=== PATIENT | male | born 1990 | race Hispanic/Latino ===

== ENCOUNTER 2017-09-15 17:02 | Emergency (ER) | payer MEDICAID, OTHER | END 2017-09-15 17:38 | disposition home or self-care (01) | LOC: EDH 17:02 | DX: S90.31XA Contusion of right foot, initial encounter (principal); W22.8XXA Striking against or struck by other objects, initial encounter; Y93.89 Activity, other specified; Y92.69 Other specified industrial and construction area as the place of occurrence of the external cause; Y99.8 Other external cause status | CPT/HCPCS: 73630 ==

== ENCOUNTER 2023-08-13 11:38 | Emergency (ER) | payer OTHER ==
[~2023-08-13] VITALS: Ht 170.2 cm; Wt 97.5 kg
[2023-08-13 11:39] VITALS: BP 149/85
[2023-08-13 12:00] LABS: RAPID GROUP A STREP negative (NEGATIVE)
[2023-08-13 12:05] LABS: SARS-CoV-2, RNA, NAAT NEGATIVE SARS CoV-2 (NEGATIVE)
[2023-08-13 12:12] LABS: INFLUENZA TYPE A Negative For Type A (NEGATIVE)
[2023-08-13 12:27] LABS: INFLUENZA TYPE B Positive For Type B (NEGATIVE)
[2023-08-13] MEDS ORDERED: OSEL75 PO (13:01)
[2023-08-13] MEDS ORDERED: POLY17PO4 PO (13:01)
[2023-08-13] MEDS ORDERED: ALBU90AE2 IH (13:01)
[2023-08-13] MEDS ORDERED: BROM118S48 PO (13:01)
[2023-08-13] MEDS ORDERED: BENZ200C53 PO (13:01)
[2023-08-13 13:12] VITALS: PULSE 78; RESP 18; O2SAT 99
== END 2023-08-13 13:13 | disposition home or self-care (01) ==
LOC: EDH 11:38
DX: J10.1 Influenza due to other identified influenza virus with other respiratory manifestations (principal); B34.9 Viral infection, unspecified; K59.00 Constipation, unspecified
CPT/HCPCS: 87635; 87804; 87880

== ENCOUNTER 2024-02-28 05:52 | Emergency (ER) | payer OTHER ==
[~2024-02-28] VITALS: Ht 170.2 cm; Wt 88.9 kg
[~2024-02-28 05:52] MED LIST: ALBU90AE3 IH; BENZ200C53 PO; BROM118S48 PO; OSEL75 PO; POLY17PO4 PO
[2024-02-28] MEDS: LACTATED RINGERS 1000ML 1,000 ML IV ONE (07:10)
[2024-02-28 07:14] LABS: BASOPHILS # (AUTO) 0.07 K/uL (0.00-0.20); BASOPHILS % (AUTO) 0.8 % (0.0-5.0); EOSINOPHILS # (AUTO) 0.34 K/uL (0.00-0.70); EOSINOPHILS % (AUTO) 3.9 % (0.0-8.0); HEMATOCRIT 45.5 % (42-54); IMMATURE GRANULOCYTE ABSOLUTE 0.02 K/uL (0-1); LYMPHOCYTES # (AUTO) 3.7 K/uL (1.0-4.8); MEAN CORPUSCULAR HEMOGLOBIN 28.9 pg (27.0-33.0); MEAN CORPUSCULAR HGB CONC 34.3 g/dL (32.0-36.0); MEAN CORPUSCULAR VOLUME 84.3 fL (79-99); MONOCYTES # (AUTO) 0.8 K/uL (0.1-1.0); NEUTROPHILS # (AUTO) 3.9 K/uL (1.8-7.7); NEUTROPHILS % (AUTO) 44.1 % (40.0-77.0); PLATELET COUNT (AUTO) 397 K/uL (130-400); RED CELL DISTRIBUTION WIDTH 13.3 % (11.0-15.5); WHITE BLOOD COUNT (AUTO) 8.8 K/uL (4.8-10.8)
[2024-02-28 07:27] LABS: CREATININE 0.8 mg/dL (0.5-1.3); POTASSIUM 3.9 mmol/L (3.5-5.1)
[2024-02-28 08:01] LABS: AMPHET/METH SCREEN,URINE NEGATIVE (NEGATIVE); BARBITURATE SCREEN, URINE NEGATIVE (NEGATIVE); BENZODIAZEPINES SCREEN,URINE POSITIVE (NEGATIVE); CANNABINOID SCREEN,URINE POSITIVE (NEGATIVE); COCAINE SCREEN,URINE NEGATIVE (NEGATIVE); OPIATE SCREEN,URINE NEGATIVE (NEGATIVE); PHENCYCLIDINE SCREEN,URINE NEGATIVE (NEGATIVE)
[2024-02-28 08:10] LABS: SARS-CoV-2, RNA, NAAT NEGATIVE SARS CoV-2 (NEGATIVE)
[2024-02-28 08:11] LABS: INFLUENZA TYPE A Negative For Type A (NEGATIVE); INFLUENZA TYPE B Negative For Type B (NEGATIVE)
[2024-02-28] MEDS ORDERED: ONDA22I IM (08:42)
[2024-02-28] MEDS ORDERED: PRED20TA3 PO (08:50)
[2024-02-28] MEDS ORDERED: AZIT250T9 PO (08:50)
[2024-02-28 08:53] VITALS: BP 147/83; PULSE 72; RESP 18; O2SAT 97
== END 2024-02-28 08:59 | disposition home or self-care (01) ==
LOC: EDH 05:52
DX: J40 Bronchitis, not specified as acute or chronic (principal); F12.10 Cannabis abuse, uncomplicated; I10 Essential (primary) hypertension; Z20.822 Contact with and (suspected) exposure to COVID-19; Z79.899 Other long term (current) drug therapy
CPT/HCPCS: 99285; 96360; 71045; 87635; 96361; 82550; 84484; 80048; 80305; 85025; 85378; 87804 ×2; 36415; 93005; J7120

== ENCOUNTER 2024-03-27 13:46 | Emergency (ER) | payer SELFPAY ==
[~2024-03-27] VITALS: Ht 175.3 cm; Wt 88.9 kg
[~2024-03-27 13:46] MED LIST changes: +AZIT250T9 PO; +ONDA22I IM; +PRED20TA3 PO
[2024-03-27] MEDS: IBUPROFEN 800 MG TAB PO ONE (14:51)
[2024-03-27] MEDS ORDERED: IBUP-2077 PO (16:01)
[2024-03-27 16:05] VITALS: BP 122/79; PULSE 91; RESP 18; O2SAT 97
== END 2024-03-27 16:07 | disposition home or self-care (01) ==
LOC: EDH 13:46
DX: S63.601A Unspecified sprain of right thumb, initial encounter (principal); I10 Essential (primary) hypertension; Z79.899 Other long term (current) drug therapy; W13.0XXA Fall from, out of or through balcony, initial encounter; Y93.89 Activity, other specified; Y92.89 Other specified places as the place of occurrence of the external cause; Y99.8 Other external cause status
CPT/HCPCS: 29130; 73140

== ENCOUNTER 2024-06-14 12:07 | Emergency (ER) | payer SELFPAY ==
[~2024-06-14] VITALS: Ht 170.2 cm; Wt 79.4 kg
[~2024-06-14 12:07] MED LIST changes: +IBUP-2077 PO
--- NOTE | 2024-06-14 12:24 | ERN ---
General Chief Complaint: Nausea,Vomiting,Diarrhea Stated Complaint: CHILLS,VOMITING,DIAHRREA X2 DAYS Time Seen by MD: 12:08 Time Seen by Midlevel: 12:08 Source: patient History of Present Illness Initial Comments Patient is a 34-year-old male with a past medical history hyperemesis cannabinoid syndrome presenting for evaluation of nausea vomiting and diarrhea that started two days ago. He does admit to marijuana use two days ago. Today he reports feeling generalized weakness along with shows so he decided to report to the ER for further evaluation. Allergies: Coded Allergies: No Known Drug Allergies (Unverified Allergy, Unknown, 08/13/23) Home Meds Active Scripts Sulfamethoxazole/Trimethoprim (Bactrim Ds Tablet) 800 Mg-160 Mg Tablet, 1 TAB PO BID for 5 Days, #10 TAB 0 Refills Prov:SAMAN TORRES 06/14/24 Famotidine (Pepcid) 20 Mg Tablet, 1 TAB PO BID for 5 Days, #10 TAB 0 Refills Prov:SAMAN TORRES 06/14/24 Ondansetron (Ondansetron Odt) 4 Mg Tab.rapdis, 4 MG PO BID for 7 Days, #14 TAB Prov:SAMAN TORRES 06/14/24 Ibuprofen (Ibuprofen 800 mg Tab) 800 Mg Tab, 800 MG PO Q8H PRN for fever or pain, #30 TAB 0 Refills Prov:PRACHI BASURTO NP 03/27/24 Prednisone (Prednisone) 20 Mg Tablet, 1 TAB PO AD for 6 Days, #14 TAB 0 Refills TAKE 1 TAB BY MOUTH THREE TIMES PER DAY X3 DAYS, THEN TAKE 1 TAB BY MOUTH TWICE A DAY X2 DAYS, THEN TAKE 1 TAB BY MOUTH ONCE A DAY X1 DAY. Prov:ANGELINA IBARRA MD 02/28/24 Azithromycin (Azithromycin) 250 Mg Tablet, 250 MG PO DAILY, #7 TAB Prov:ANGELINA IBARRA MD 02/28/24 Ondansetron HCl (Zofran) 4 Mg/2 Ml Inj, 4 MG IM TID for nausea, #15 ML Prov:ANGELINA IBARRA MD 02/28/24 Benzonatate (Benzonatate) 200 Mg Capsule, 200 MG PO TID PRN for COUGH for 14 Days, #42 CAP Prov:TRISTAN SAUCEDAP 08/13/23 D-Methorphan Hb/P-Epd HCl/Bpm (Bromfed Dm Cough Syrup) 2 Mg-30 Mg-10 Mg/5 Ml Syrup, 10 ML PO Q4HPRN PRN for COUGH/COLD SYMPTOMS, #150 ML Prov:TRISTAN SAUCEDA V [employer] SOFTWARE [employer]INE[employer] 08/13/23 Albuterol Sulfate (Proair Digihaler) 90 Mcg Aer.pw.bas, 1 PUFF IH QID PRN for WHEEZING, #1 INHALER Prov:TRISTAN SAUCEDA V [employer] SOFTWARE ENGINE[employer] 08/13/23 Oseltamivir Phosphate (Tamiflu) 75 Mg Cap, 75 MG PO BID, #10 DAYS Prov:TRISTAN SAUCEDA V [employer] SOFTWARE ENGINE[employer] 08/13/23 Polyethylene Glycol 3350 (Miralax) 17 Gram Powd.pack, 1 DOSE PO HS for 7 Days, #17 GM 1 capful at bedtime for 7 days. Prov:TRISTAN SAUCEDA V [employer] ENGINE[employer] 08/13/23 Past Medical History Past Medical History: Hypertension Past Surgical History: None ROS Dictation CONSTITUTIONAL: Negative except for HPI HEAD/FACE: Negative except for HPI EENT: Negative except for HPI RESPIRATORY: Negative except for HPI GASTROINTESTINAL/ABDOMINAL: Negative except for HPI GENITOURINARY: Negative except for HPI MUSCULOSKELETAL: Negative except for HPI INTEGUMENTARY: Negative except for HPI NEUROLOGICAL/PSYCH: Negative except for HPI HEMATOLOGIC/LYMPHATIC: Negative except for HPI All Systems Negative, Except as noted above. 13 point review of systems assessed and all negative except for above. Physical Exam Physical Exam Dictation Vital Signs reviewed General Appearance: Alert, oriented x 3, no acute distress, well developed, nourished. Head and Face: non-traumatic. Eyes: PERRL, pink conjunctivas, eyelid no trauma, anterior chamber with arcus senilis. Ears: Pinnas intact and no signs of trauma or erythema ear canals clear and no discharge TM no erythema Nose: No discharge, no bleeding. Oropharynx: Mouth normal, tongue pink, pharynx clear,no erythema, tonsils no exudates, no abscesses noted, mucous membrane moist Neck: Supple, non-tender, no thyromegaly, no masses, no JVD, no bruits Breast:Deferred Chest:No tenderness, no crepitus, no paradoxical movement, no retractions Lungs:Clear, well-ventilated, symmetric, no rales, no wheezing, no rhonchi, no stridor, good breath sounds bilaterally Heart: Regular rate, regular rhythm, no murmur, no gallops Vascular: no peripheral edema, Abdomen: Soft, positive bowel sounds, nondistended, no guarding, nontender, no rebound, no masses no hepatomegaly, no splenomegaly, no Watts's sign, no hernias. Rectal: Deferred Genital: Deferred Neurological: Normal speech, motor function intact, sensory function intact Musculoskeletal: Neck nontender, full range of motion, back nontender, full range of motion, Extremities: nontender, full range of motion Skin: Color pink, dry, no turgor, no rash, no lacerations, no abrasions, no contusions. Lymphatic: Deferred Results Laboratory and Microbiology Lab and Micro Result Laboratory Tests Test 06/14/24 12:27 06/14/24 12:28 Urine Color YELLOW (YELLOW) Urine Appearance CLEAR (CLEAR) Urine pH 6.0 (5.0-8.0) Urine Specific [place] 1.019 (1.001-1.031) Urine Protein NEGATIVE mg/dL (NEGATIVE) Urine Glucose (UA) NEGATIVE mg/dL (NEGATIVE) Urine Ketones NEGATIVE mg/dL (NEGATIVE) Urine Occult Blood NEGATIVE (NEGATIVE) Urine Nitrate NEGATIVE (NEGATIVE) Urine Bilirubin NEGATIVE mg/dL (NEGATIVE) Urine Urobilinogen 0.2 mg/dL (0.2-1.0) Urine Leukocyte Esterase NEGATIVE Camila/uL White Blood Count 11.4 K/uL (4.8-10.8) H Red Blood Count 5.15 MIL/uL (4.50-6.20) Hemoglobin 15.2 g/dL (14.0-18.0) Hematocrit 45.4 % (42-54) Mean Corpuscular Volume 88.2 fL (79-99) Mean Corpuscular Hemoglobin 29.5 pg (27.0-33.0) Mean Corpuscular Hemoglobin Concent 33.5 g/dL (32.0-36.0) Red Cell Distribution Width 13.0 % (11.0-15.5) Platelet Count 392 K/uL (130-400) Mean Platelet Volume 9.9 fL (7.5-10.5) Immature Granulocyte % (Auto) 0.2 % (0-1) Neutrophils (%) (Auto) 65.3 % (40.0-77.0) Lymphocytes (%) (Auto) 25.8 % (21.0-51.0) Monocytes (%) (Auto) 5.4 % (3.0-13.0) Eosinophils (%) (Auto) 2.6 % (0.0-8.0) Basophils (%) (Auto) 0.7 % (0.0-5.0) Neutrophils # (Auto) 7.4 K/uL (1.8-7.7) Lymphocytes # (Auto) 2.9 K/uL (1.0-4.8) Monocytes # (Auto) 0.6 K/uL (0.1-1.0) Eosinophils # (Auto) 0.29 K/uL (0.00-0.70) Basophils # (Auto) 0.08 K/uL (0.00-0.20) Absolute Immature Granulocyte (auto 0.02 K/uL (0-1) Nucleated Red Blood Cells 0.0 % (0.0-0.19) Sodium Level 140 mmol/L (136-145) Potassium Level 3.8 mmol/L (3.5-5.1) Chloride Level 100 mmol/L (101-111) L Carbon Dioxide Level 30 mmol/L (21-32) Blood Urea Nitrogen 11 mg/dL (7-18) Creatinine 0.8 mg/dL (0.5-1.3) Glomerular Filtration Rate Calc 121 mL/min (>90) Random Glucose 94 mg/dL (70-105) Total Calcium 9.7 mg/dL (8.5-10.1) Total Bilirubin 1.3 mg/dL (0.2-1.0) H Direct Bilirubin 0.2 mg/dL (0.0-0.3) Aspartate Amino Transf (AST/SGOT) 14 U/L (10-37) Alanine Aminotransferase (ALT/SGPT) 31 U/L (12-78) Alkaline Phosphatase 78 U/L (50-136) Total Protein 8.7 g/dL (6.0-8.3) H Albumin 4.7 g/dL (3.5-5.0) Lipase 34 U/L (16-77) Labs Reviewed?: Yes MDM MDM: Patient is a 34-year-old male with a past medical history hyperemesis cannabinoid syndrome presenting for evaluation of nausea vomiting and diarrhea that started two days ago. He does admit to marijuana use two days ago. Today he reports feeling generalized weakness along with shows so he decided to report to the ER for further evaluation. On physical examination patient is in no acute distress. He has had no episodes of emesis while in the emergency department. His abdominal examination is unremarkable. His CBC does not show any leukocytosis. His hemoglobin is stable. His chemistries and liver function tests were within normal ranges. His urine does not show any evidence of infection. Patient was given 1 L of IV fluids, Zofran and Pepcid in the ER and reports feeling significantly improved. Patient will be discharged home. Differential diagnosis: Hyperemesis cannabinoid syndrome, gastroenteritis, dehydration There are no social concerns with this patient. Prescription drug management Prescriptions will include: Zofran, Pepcid, Bactrim Medical management and examination interpretation discussions were had by me with other qualified healthcare professionals as indicated for the patient's care. ED Course Orders Procedure Category Date Status Time Cbc With Differential LAB 06/14/24 Complete 12:10 Basic Metabolic Panel LAB 06/14/24 Complete 12:10 Hepatic Function Panel LAB 06/14/24 Complete 12:10 Lipase LAB 06/14/24 Complete 12:10 Urinalysis Profile LAB 06/14/24 Complete 12:41 0.9%Nacl 1000ml (Ns PHA 06/14/24 Complete 1000ml) 14:00 Ondansetron 4mg Inj PHA 06/14/24 Complete (Zofran 4mg Inj) 16:00 Famotidine 20mg Vial PHA 06/14/24 Complete (Pepcid 20mg Vial) 16:00 Current Medications Medications (Trade) Dose Ordered Sig/Nils Route PRN Reason Start Time Stop Time Status Last Admin Dose Admin Famotidine (Pepcid 20mg Vial) 20 mg ONCE ONCE IV 06/14/24 16:00 06/14/24 15:57 DC 06/14/24 15:36 Ondansetron HCl (zoFRAN 4MG INJ) 4 mg ONCE ONCE IVP 06/14/24 16:00 06/14/24 15:57 DC 06/14/24 15:36 Sodium Chloride 1,000 ml @ 0 mls/hr ONCE ONCE IV 06/14/24 14:00 06/14/24 14:01 DC 06/14/24 14:06 Vital Signs Date Time Temp Pulse Resp B/P (MAP) Pulse Ox O2 Delivery O2 Flow Rate FiO2 06/14/24 15:50 98.2 80 16 136/89 98 Room Air* 0 06/14/24 12:36 98.2 90 16 133/72 98 Room Air* 0 21 06/14/24 12:14 98.2 85 20 118/77 99 Room Air DX & DISP Disposition: Discharge Departure Impression: Primary Impression: Gastroenteritis Additional Impression: Nausea and vomiting Condition: Stable Scripts Sulfamethoxazole/Trimethoprim (Bactrim Ds Tablet) 800 Mg-160 Mg Tablet 1 TAB PO BID for 5 Days, #10 TAB 0 Refills Prov: SAMAN TORRES 06/14/24 Famotidine (Pepcid) 20 Mg Tablet 1 TAB PO BID for 5 Days, #10 TAB 0 Refills Prov: SAMAN TORRES 06/14/24 Ondansetron (Ondansetron Odt) 4 Mg Tab.rapdis 4 MG PO BID for 7 Days, #14 TAB Prov: SAMAN TORRES 06/14/24 Additional Instructions: Your blood work today is unremarkable. Your symptoms may be related to a gastroenteritis. I have given you a prescription for Zofran, Pepcid, and Bactrim. Follow up with your primary care provider in 2-3 days for repeat evaluation. Return to the ER for any new or worsening symptoms. Referrals: NONE (PCP) Time of Disposition: 15:35 I have reviewed the case, and I agree with, Diagnosis and Plan I performed the substantive portion of the visit. I have reviewed and personally made and approve the management plan that is documented in the note by myself or the KELI. I acknowledge for responsibility for the patient's management plan. ALEXA RUCKER DO Jun 14, 2024 12:24 SAMAN TORRES Jun 14, 2024 15:37
[2024-06-14 12:52] LABS: BASOPHILS # (AUTO) 0.08 K/uL (0.00-0.20); BASOPHILS % (AUTO) 0.7 % (0.0-5.0); EOSINOPHILS # (AUTO) 0.29 K/uL (0.00-0.70); EOSINOPHILS % (AUTO) 2.6 % (0.0-8.0); HEMATOCRIT 45.4 % (42-54); IMMATURE GRANULOCYTE ABSOLUTE 0.02 K/uL (0-1); LYMPHOCYTES # (AUTO) 2.9 K/uL (1.0-4.8); LYMPHOCYTES % (AUTO) 25.8 % (21.0-51.0); MEAN CORPUSCULAR HEMOGLOBIN 29.5 pg (27.0-33.0); MEAN CORPUSCULAR HGB CONC 33.5 g/dL (32.0-36.0); MEAN CORPUSCULAR VOLUME 88.2 fL (79-99); MONOCYTES # (AUTO) 0.6 K/uL (0.1-1.0); MONOCYTES % (AUTO) 5.4 % (3.0-13.0); NEUTROPHILS # (AUTO) 7.4 K/uL (1.8-7.7); NEUTROPHILS % (AUTO) 65.3 % (40.0-77.0); PLATELET COUNT (AUTO) 392 K/uL (130-400); RED BLOOD CELL COUNT(AUTO) 5.15 MIL/uL (4.50-6.20); WHITE BLOOD COUNT (AUTO) 11.4 K/uL (4.8-10.8)
[2024-06-14 13:22] LABS: ALBUMIN 4.7 g/dL (3.5-5.0); BILIRUBIN,DIRECT 0.2 mg/dL (0.0-0.3); BILIRUBIN,TOTAL 1.3 mg/dL (0.2-1.0); CREATININE 0.8 mg/dL (0.5-1.3); POTASSIUM 3.8 mmol/L (3.5-5.1); TOTAL PROTEIN, SERUM 8.7 g/dL (6.0-8.3)
[2024-06-14 13:52] LABS: APPEARANCE,URINE CLEAR (CLEAR); BILIRUBIN,URINE NEGATIVE (NEGATIVE); COLOR,URINE YELLOW (YELLOW); GLUCOSE, URINE (UA) NEGATIVE (NEGATIVE); KETONES,URINE NEGATIVE (NEGATIVE); LEUKOCYTE ESTERASE ,URINE NEGATIVE Leu/uL (NEGATIVE); NITRATE,URINE NEGATIVE (NEGATIVE); OCCULT BLOOD,URINE NEGATIVE (NEGATIVE); PROTEIN,URINE NEGATIVE (NEGATIVE); UROBILINOGEN,URINE 0.2 mg/dL (0.2-1.0)
[2024-06-14 13:57] LABS: ADD UA MICROSCOPIC NO
[2024-06-14] MEDS: 0.9%NACL 1000ML 1,000 ML IV ONE (14:06)
[2024-06-14] MEDS: FAMOTIDINE 20MG VIAL IV ONE (15:36)
[2024-06-14] MEDS: ondanSETRON 4MG INJ IVP ONE (15:36)
[2024-06-14 15:50] VITALS: BP 136/89; PULSE 80; RESP 16; TEMP 98.3; O2SAT 98
[2024-06-14] MEDS ORDERED: SULF1TAB42 PO (15:50)
[2024-06-14] MEDS ORDERED: FAMO-136 PO (15:50)
[2024-06-14] MEDS ORDERED: ONDA-243 PO (15:50)
== END 2024-06-14 15:57 | disposition home or self-care (01) ==
LOC: EDH 12:07
DX: K52.9 Noninfective gastroenteritis and colitis, unspecified (principal); I10 Essential (primary) hypertension; Z79.899 Other long term (current) drug therapy
CPT/HCPCS: 99284; 96374; 96361; 96375; 80076; 80048; 83690; 85025; 81003; 36415; J3490; J2405